=== PATIENT | female | born 1970 | race Two or more races ===

== ENCOUNTER 2025-10-27 19:42 | Emergency (ER) | payer OTHER ==
[~2025-10-27] VITALS: Ht 165.1 cm; Wt 61.7 kg
[2025-10-27 20:08] VITALS: BP 88/57; O2SAT 100
[2025-10-27] MEDS ORDERED: FAMOTIDINE/PF 20 MG/2 ML VIAL IV STA (20:54)
[2025-10-27] MEDS ORDERED: ONDANSETRON HCL 2 MG/ML VIAL IV STA (20:54)
[2025-10-27] MEDS ORDERED: 0.9 % SODIUM CHLORIDE 1,000 ML IV STA (20:54)
[2025-10-27] MEDS ORDERED: FAMOTIDINE/PF 20 MG/2 ML VIAL ONE (21:08)
[2025-10-27] MEDS ORDERED: ONDANSETRON HCL 2 MG/ML VIAL ONE (21:08)
[2025-10-27 21:50] LABS: BASO % 0.2 % (0.1-1.2); EOS # 0.06 (0.04-0.54); EOS % 0.5 % (0.7-7.0); LYMPH # 1.27 (1.18-3.74); LYMPH % 11.1 % (19.3-53.1); MEAN PLATELET VOLUME 10.40 fl (9.4-12.4); MONO # 0.74 (0.24-0.82); MONO % 6.5 % (4.7-12.5); NEUT # 9.29 (1.56-6.13); NEUT % 81.4 % (34.0-71.1); RED CELL DISTRIBUTION WIDTH 12.6 % (11.6-14.4)
[2025-10-27 21:55] LABS: URINE APPEARANCE Clear; URINE BILIRRUBIN Negative (NEGATIVE); URINE BLOOD Negative; URINE COLOR Yellow; URINE GLUCOSE Negative (NEGATIVE); URINE KETONE Trace (NEGATIVE); URINE LEUKOCYTE Negative; URINE NITRATE Negative; URINE PROTEIN Negative (NEGATIVE); URINE UROBILINOGEN 0.2 E.U./dl
[2025-10-27 21:58] LABS: URINE BACTERIA 125.8 uL (0.0-1933); URINE EPITHELIAL CELLS 21.2 uL (0.0-38.8); URINE RBC 5.2 uL (0.0-20.8); URINE WBC 6.2 uL (0.0-23.2)
[2025-10-27 22:00] LABS: URINE CAST 0.14 uL (0.0-1.40)
[2025-10-27 22:04] LABS: ERYTHROCYTE SEDIMENTATION RATE 18 mm/hr (0-30)
[2025-10-27 22:13] LABS: INR 1.02
[2025-10-27 22:21] LABS: ALT/SGPT 20.0 U/L (12-78); AST/SGOT 14.0 U/L (15-37); BILIRUBIN TOTAL 1.06 mg/dL (0.3-1.2); BUN CREA RATIO 15.0 (7.0-25.0); CREATININE SERUM 0.61 mg/dL (0.55-1.02); GFR 102.21; GLOBULINA 3.4 G/DL (2.4-3.5); GLUCOSE FASTING 113.0 mg/dL (65-100); OSMOLALITY SERUM 281.0 MOSM/KG (275-295)
[2025-10-27] MEDS ORDERED: CIPROFLOXACIN IN 5 % DEXTROSE 400 MG/200 ML PIGGYBAG IV STA (22:50)
[2025-10-27] MEDS ORDERED: METRONIDAZOLE/SODIUM CHLORIDE 500 MG/100 ML PIGGYBACK IV STA (22:50)
[2025-10-27] MEDS ORDERED: KETOROLAC TROMETHAMINE 30 MG VIAL IU STA (22:51)
[2025-10-27] MEDS ORDERED: KETOROLAC TROMETHAMINE 30 MG VIAL ONE (23:28)
[2025-10-27] MEDS ORDERED: METRONIDAZOLE/SODIUM CHLORIDE 500 MG/100 ML PIGGYBACK IV ONE (23:29)
[2025-10-27] MEDS ORDERED: CIPROFLOXACIN IN 5 % DEXTROSE 400 MG/200 ML PIGGYBAG IV ONE (23:29)
[2025-10-27] MEDS ORDERED: PEPCID AC20 MG PO (23:33)
[2025-10-27] MEDS ORDERED: CIPRO500 MG PO (23:33)
[2025-10-27] MEDS ORDERED: METRONIDAZOLE500 MG PO (23:33)
[2025-10-27] MEDS ORDERED: INTESTINEX680 M2 PO (23:33)
[2025-10-27] MEDS ORDERED: KETO10TA2 PO (23:33)
== END 2025-10-28 03:38 | disposition home or self-care (01) ==
LOC: ER 19:43
PROVIDERS: Physician Assistant Medical
DX: K57.32 Diverticulitis of large intestine without perforation or abscess without bleeding (principal); R63.0 Anorexia; E86.0 Dehydration; N39.0 Urinary tract infection, site not specified